=== PATIENT | female | born 1960 | race Two or more races ===

== ENCOUNTER 2025-03-15 13:47 | Emergency (ER) | payer SELFPAY ==
[~2025-03-15] VITALS: Ht 154.9 cm; Wt 69.4 kg
[2025-03-15 15:23] VITALS: BP 155/93; PULSE 90; RESP 16; TEMP 97.6; O2SAT 97
--- NOTE | 2025-03-15 15:23 | ED.PDOC ---
Musculoskeletal HPI Comments A 64 YEAR OLD FEMALE PRESENTS TO THE ED WITH COMPLAINT OF UPPER EXTREMITY PAIN . PATIENT STATES SHE HAS BEEN HAVING LEFT NECK PAIN RADIATING TO THE LEFT HAND WITH THE ASSOCIATED NUMBNESS AND TINGLING FOR THE PAST 2 WEEKS. PATIENT DENIES ANY ASSOCIATED INJURY OR TRAUMA PATIENT DENIES FEVER, CHILLS, SHORTNESS OF BREATH, CHEST PAIN, ABDOMINAL PAIN, NAUSEA, VOMITING, HEADACHE, OR OTHER COMPLAINTS. NO OTHER SYMPTOMS OR MODIFYING FACTORS AT THIS TIME. PATIENT IS ALERT, ORIENTED X 4, AND HAS STEADY GAIT. Chief Complaint: Upper Extremity Time Seen by MD: 15:16 Reviewed Notes: Nurses Notes, Medications, Allergies Allergies: Coded Allergies: NO KNOWN ALLERGIES (Unverified , 03/15/25) Home Meds Active Scripts Prednisone (Prednisone) 20 Mg Tab, 40 MG PO DAILY, #20 TAB Prov:NED STRATTON 03/15/25 Information Source: Patient Mode of Arrival: Ambulatory Brought in by: SELF Location: Left Extremity Location: Arm, Shoulder Timing: Weeks Prehospital treatment: None Severity: Moderate Able to Move Extremity: Yes Bear Weight: Fully Pain: Moderate Mechanism: Spontaneous Circumstances: Spontaneous Onset of Symptoms: Spontaneous Symptoms: Pain DVT Risk Factors: NONE Associated signs and symptoms: None Past Medical History PAST MEDICAL HISTORY: Denies Surgical History: Denies all surgeries [employer]GER [employer]ENT History: Denies all [employer]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 Family History Family History: Reviewed,noncontributory to illness Social History Smoker: Non-Smoker Alcohol: Denies ETOH Use Drugs: Denies Drug Use Lives In: Home Constitutional: denies: chills, diaphoresis, fatigue, fever, malaise, sweats, weakness, others EENTM: denies: blurred vision, double vision, ear bleeding, ear discharge, ear drainage, ear pain, ear ringing, eye pain, eye redness, hearing loss, mouth pain, mouth swelling, nasal discharge, nose bleeding, nose congestion, nose pain, photophobia, tearing, throat pain, throat swelling, voice changes, others Respiratory: denies: cough, hemoptysis, orthopnea, SOB at rest, shortness of breath, SOB with excertion, stridor, wheezing, others Cardiovascular: denies: chest pain, dizzy spells, diaphoresis, Dyspnea on exertion, edema, irregular heart beat, left arm pain, lightheadedness, palpitations, PND, syncope, others Gastrointestinal: denies: abdomen distended, abdominal pain, blood streaked bowels, constipated, diarrhea, dysphagia, difficulty swallowing, hematemesis, melena, nausea, poor appetite, poor fluid intake, rectal bleeding, rectal pain, vomiting, others Genitourinary: denies: abnormal vagina bleeding, burning, dyspareunia, dysuria, flank pain, frequency, hematuria, incontinence, pain, , vagina discharge, urgency, others Neurological: reports: numbness (LEFT UPPER EXTREMITY); denies: dizziness, fainting, headache, left sided numbness, left sided weakness, paresthesia, pre- existing deficit, right sided numbness, right sided weakness, seizure, speech problems, tingling, tremors, weakness, others Musculoskeletal: reports: joint pain (LEFT ARM AND SHOULDER), muscle pain, neck pain; denies: back pain, gout, joint swelling, muscle stiffness, others Integumetry: denies: bruises, change in color, change in hair/nails, dryness, laceration, lesions, lumps, rash, wounds, others Allergic/Immunocompromised: denies: Difficulty Healing, Frequent Infections, Hives, Itching, others Hematologic/Lymphatic: denies: anemia, blood clots, easy bleeding, easy bruising, swollen glands, others Endocrine: denies: excessive hunger, excessive sweating, excessive thirst, excessive urination, flushing, intolerance to cold, intolerance to heat, unexplained weight gain, unexplained weight loss, others Psychiatric: denies: anxiety, bipolar disorder, depression, hopeless, panic disorder, schizophrenia, sleepless, suicidal, others All Other Systems: Reviewed and Negative Physical Exam General Appearance: No Apparent Distress, Normal HEENT: Normal ENT Inspection, PERRL/EOMI, Pharynx Normal, TMs Normal Neck: Full Range of Motion, Normal Inspection, Tender Lateral (MUSCLE SPASM ON POSTERIOR NECK, NO BONY TENDERNESS, SWELLING AND DEFORMITY. ) Respiratory: Chest Non-Tender, Lungs Clear, No Accessory Muscle Use, No Respiratory Distress, Normal Breath Sounds Cardiovascular: No Edema, No JVD, No Murmur, No Gallop, Normal Peripheral Pulses, Regular Rate/Rhythm Breast Exam: Deferred Gastrointestinal: No Organomegaly, Non Tender, No Pulsatile Mass, Normal Bowel Sounds, Soft Genitalia: Deferred Pelvic: Deferred Rectal: Deferred Extremities: No calf tenderness, Normal capillary refill, Normal inspection, Normal range of motion, Non-tender, No pedal edema Musculoskeletal : Apperance: Normal Neurologic: Alert, package handler II-XII nml as Tested, No Motor Deficits, Normal Affect, Normal Mood, No Sensory Deficits Cerebellar Function: Normal Reflexes: Normal Skin: Dry, Normal Color, Warm Peripheral Pulses: 2+ carotid (R), 2+ carotid (L) Lymphatic: No Adenopathy Was a procedure done? Was a procedure done?: No Differential Diagnosis EXT Differential Diagnosis: Fracture, Sprain, DJD, Contusion, Strain, Rheumatoid, Neurovascular injury, Arthritis Other Differential Diagnosis MUSCLE STRAIN, MUSCLE SPASM CERVICAL RADICULOPATHY X-Ray, Labs, Meds, VS Vital Signs Date Time Temp Pulse Resp B/P (MAP) Pulse Ox O2 Delivery O2 Flow Rate FiO2 03/15/25 15:23 97.6 90 16 155/93 (113) 97 97.6 03/15/25 15:23 90 16 97 Room Air 03/15/25 13:51 97.6 90 16 155/93 97 97.6 [place] [id number] Ph: [phone] DIAGNOSTIC IMAGING Diagnostic Imaging Report : [id number] Signed PATIENT: PEYMAN MORALES ACCT: [id number] UNIT: [id number] : 1960 LOC: ER ROOM / BED: / AGE / SEX: 64 / F ADM STATUS: REG ER SERVICE 1430 ORDERING PHYSICIAN: NED STRATTON PROCEDURE(s): CERV2 - CERVICAL SPINE 3V REASON: NECK PAIN TO HANDS WITH NUMBNESS AND TINGLING SENSATION ORDER NUMBER(s): [id number], ACCESSION NUMBER(s): [id number] EXAM: XY CERVICAL SPINE 3V INDICATION: NECK PAIN TO HANDS WITH NUMBNESS AND TINGLING SENSATION TECHNIQUE: 3 views of the cervical spine COMPARISON: None FINDINGS/IMPRESSION: No radiographic evidence of an acute osseous abnormality. There is no acute fracture, osseous malalignment, or aggressive focal osseous lesion. Trace retrolisthesis C4 over C5. No prevertebral edema. No endplate compression fracture. ATED BY: DUGLAS CAMPOS MD DICTATED DATE/TIME: 03/15/25 160 SIGNED BY: DUGLAS CAMPOS MD SIGNED DATE/TIME: 03/15/25 160 CC: X-Ray, Labs, Meds, VS Comment COURSE: EXTERNAL MEDICAL RECORDS REVIEWED: [NONE] INDEPENDENT HISTORIANS: [NONE] SOCIAL DETERMINANTS OF HEALTH: [NONE] LABS ORDERED: NONE REVIEWED AND INTERPRETED RESULTS: NONE IMAGING ORDERED: CERVICAL SPINE X-RAY TREATMENTS ORDERED: PROCEDURES PERFORMED: NONE CRITICAL CARE TIME: NONE I HAVE DISCUSSED THE PATIENT WITH THE ATTENDING PHYSICIAN DR WATKINS IN HISN HE HAS BEEN WHILE [place] RIGHT THERE HAS BEEN HAS BEEN HE RIGHT EAR HAS A ME HE HAS A GO TO RUN A FEMALE RIGHT HAS BEEN THE HER. AND HE AGREES WITH THE PATIENT'S PLAN OF CARE AND DISPOSITION. BASED ON HISTORY OF PRESENT ILLNESS, AND PHYSICAL EXAM, PATIENT WILL BE DISCHARGED HOME. DISCUSSED PLAN FOR DISCHARGE HOME WITH RX [PREDNISONE ]. MEDICATION WARNINGS GIVEN. SHARED DECISION MAKING: DISCUSSED WITH PATIENT THAT THEIR WORKUP WAS NORMAL. PATIENT INSTRUCTED TO FOLLOW UP WITH PRIMARY CARE PROVIDER IN 1-2 DAYS FOR RE- EVALUATION OF SYMPTOMS. PATIENT VERBALIZES UNDERSTANDING TO RETURN TO ED FOR NEW OR WORSENING SYMPTOMS OR IF FOLLOW UP WITH PCP CANNOT BE OBTAINED. PATIENT FEELS COMFORTABLE GOING HOME AT THIS TIME. ALL QUESTIONS ADDRESSED AT TIME OF DISCHARGE. Time of 1ST Reevaluation: 15:45 Reevaluation 1ST: Improved Patient Education/Counseling: Diagnosis, Treatment, Need For Follow Up Family Education/Counseling: Diagnosis, Treatment, Need For Follow Up Medical Screening: No EMC Exist At This Time Departure 1 Departure Time of Disposition: 16:30 Impression: Primary Impression: Retrolisthesis of vertebrae Additional Impression: Cervical radiculopathy Disposition: 01 HOME / SELF CARE / HOMELESS Condition: Stable Additional Instructions: INSTRUCTIONS: FOLLOW-UP WITH PCP IN 1 TO 2 DAYS. TAKE MEDICATIONS PRESCRIBED. RETURN TO ED FOR ANY NEW OR WORSENING SYMPTOMS. e-Prescriptions Prednisone (Prednisone) 20 Mg Tab 40 MG PO DAILY, #20 TAB Prov: NED STRATTON 03/15/25 Discharged With: Self Critical Care Note Critical Care Time?: No Stability Stability form required: No Heart Score Heart Score: Heart Score Response (Comments) Value History N/A 0 EKG N/A 0 Age N/A 0 Risk Factors N/A 0 Troponin N/A 0 Total 0 I personally scribed for NED STRATTON ([email or web address]) on 03/15/25 at 15:22. Electronically submitted by Flynn Chapman ([email or web address]). I personally scribed for NED STRATTON ([email or web address]) on 03/15/25 at 16:17. Electronically submitted by Flynn Chapman ([facility] [place]). I personally scribed for NED STRATTON ([email or web address]) on 03/15/25 at 16:19. Electronically submitted by Flynn Chapman ([facility] [place]). I personally scribed for NED STRATTON ([email or web address]) on 03/15/25 at 16:26. Electronically submitted by Flynn Chapman ([facility] [place]). NED STRATTON Mar 15, 2025 15:22
--- NOTE | 2025-03-15 16:06 | DVH ---
EXAM: XY CERVICAL SPINE 3V INDICATION: NECK PAIN TO HANDS WITH NUMBNESS AND TINGLING SENSATION TECHNIQUE: 3 views of the cervical spine COMPARISON: None FINDINGS/IMPRESSION: No radiographic evidence of an acute osseous abnormality. There is no acute fracture, osseous malalignment, or aggressive focal osseous lesion. Trace retrolisthesis C4 over C5. No prevertebral edema. No endplate compression fracture.
[2025-03-15] MEDS ORDERED: PRED20TA2 PO (16:28)
== END 2025-03-15 16:36 | disposition home or self-care (01) ==
LOC: ER 13:47
DX: M43.12 Spondylolisthesis, cervical region (principal); M54.12 Radiculopathy, cervical region
CPT/HCPCS: 72040